=== PATIENT | male | born 1990 | race Caucasian/White ===

== ENCOUNTER 2016-08-31 10:26 | Emergency (ER) | payer OTHER ==
[2016-08-31 10:57] VITALS: TEMP 98.1
--- NOTE | 2016-08-31 11:15 | XR ---
Right hand HISTORY: Trauma and pain 3 views of the right hand No comparisons Bone mineralization, joint spaces and alignment are maintained. There is soft tissue swelling. Probab le geode distal pole of the scaphoid. IMPRESSION: No fracture or dislocation is evident. Follow-up as indicated.
--- NOTE | 2016-08-31 11:22 | ED ---
Upper Extremity HPI - General Chief Complaint: Extremity Injury, Upper Stated Complaint: RT WRIST INJURY Time Seen by Provider: 08/31/16 11:00 Source: patient, RN notes reviewed Mode of arrival: ambulatory Limitations: no limitations - History of Present Illness Initial Comments: 22-year-old male presents to the emergency Department chief complaint of right hand injury. Patient states that last night on Wednesday he punched something. Patient states since he's had pain over the top of his hand. Patient states that he hasn't had any other injuries from the incident. Patient states he is up-to-date on vaccinations. Patient states just continued to have pain on movement but he should be seen. Patient states that he has no other complaints at this time. Patient states pain is moderate with no radiation. Patient states constant throbbing with movement or touch. Place: home - Related Data Home Medications Medication Instructions Recorded Confirmed No Known Home Medications [No 08/31/16 08/31/16 Known Home Medications] Allergies Allergy/AdvReac Type Severity Reaction Status Date / Time No Known Allergies Allergy Verified 08/31/16 11:09 Review of Systems ROS Statement: Those systems with pertinent positive or pertinent negative responses have been documented in the HPI. ROS Other: All systems not noted in ROS Statement are negative. Past Medical History Past Medical History: No Reported History History of Any Multi-Drug Resistant Organisms: None Reported Past Surgical History: No Surgical Hx Reported Past Psychological History: No Psychological Hx Reported Smoking Status: Never smoker Past Alcohol Use History: Occasional Past Drug Use History: None Reported General Exam - General Exam Comments Initial Comments: General: The patient is awake and alert, in no distress, and does not appear acutely ill. Neck: The neck is supple, there is no tenderness. Cardiovascular: There is a regular rate and rhythm. No murmur, rub or gallop is appreciated. Respiratory: Lungs are clear to auscultation, respirations are non-labored, breath sounds are equal. No wheezes, stridor, rales, or rhonchi. Musculoskeletal: Sensation intact. 2+ pulses. Right upper extremity. Full range of motion of right wrist and right hand. Patient does appear to have multiple abrasions to the right hand side with associated tenderness to palpation of the fourth and fifth metacarpals. Full range of motion of all digits. No anatomical snuffbox tenderness. Neurological: CN II-XII intact, There are no obvious motor or sensory deficits. Coordination appears grossly intact. Speech is normal. Skin: Skin is warm and dry and no rashes or lesions are noted. Psychiatric: Normal mood and affect. Limitations: no limitations Course Vital Signs 08/31/16 10:54 Temperature 98.1 F Pulse Rate 57 L Respiratory 18 Rate Blood Pressure 140/74 O2 Sat by Pulse 100 Oximetry Procedures - Orthopedic Splinting/Casting Injury #1 Side: right Upper Extremity Injury Location: wrist Upper Extremity Immobilizer: Bandar wrap Medical Decision Making - Medical Decision Making 25-year-old male presents emergency department chief complaint of right hand pain. This time patient underwent an x-ray that shows no acute fracture. At this time we discussed ice Motrin Tylenol rice patient stated that he understood. We discussed return for follow-up. Patient is in agreement with the plan and all questions have been answered. This time he will be discharged home. - Radiology Data Radiology results: report reviewed, image reviewed Disposition Clinical Impression: Sprain of right hand, Contusion of right hand, Abrasion of right hand Disposition: HOME SELF-CARE Condition: Stable Instructions: Hand Sprain (ED), Abrasion (ED) Additional Instructions: Please use medication as discussed. Please follow up with family doctor if symptoms have not improved over the next two days. Please return to the emergency room if your symptoms increase or worsen or for any other concerns. Rest the area. Ice the area 20 min on 20 min off 4x a day. Compress the area with either the BANDAR bandage or wearing the splint. Elevate the area above the heart whenever possible. Referrals: Zaida Horner MD [STAFF PHYSICIAN] - 1-2 days Time of Disposition: 11:22
[2016-08-31 11:38] VITALS: BP 142/76; PULSE 67; RESP 16
== END 2016-08-31 11:38 | disposition home or self-care (01) ==
LOC: EC 10:26
DX: S63.91XA Sprain of unspecified part of right wrist and hand, initial encounter (principal); S60.221A Contusion of right hand, initial encounter; W22.8XXA Striking against or struck by other objects, initial encounter
CPT/HCPCS: 99283

== ENCOUNTER 2016-11-26 09:14 | Emergency (ER) | payer OTHER ==
[2016-11-26 09:34] VITALS: TEMP 98.4
--- NOTE | 2016-11-26 09:56 | ED ---
General Adult HPI - General Chief complaint: Extremity Injury, Upper Stated complaint: shoulder pain Time Seen by Provider: 11/26/16 09:42 Source: patient, RN notes reviewed Mode of arrival: ambulatory Limitations: no limitations - History of Present Illness Initial comments: Patient is a 26-year-old male who presents emergency room today with a chief complaint of a injury to the left shoulder that occurred 1 day ago. Does admit that he was playing volleyball went to dive for the ball landing on a talked left shoulder. He admits pain with certain movements when he tried to go above his head. States feels in the trapezius area. He denies any neck pain. Denies any head injury or loss conscious. Denies any other complaints or symptoms. Patient denies any recent fever, chills, shortness of breath, chest pain, back pain, abdominal pain, nausea or vomiting, numbness or tingling, dysuria or hematuria, constipation or diarrhea, headaches or visual changes, or any other complaints. - Related Data Previous Rx's Medication Instructions Recorded Ibuprofen [Motrin] 600 mg PO Q6HR PRN #40 day 11/26/16 Allergies Allergy/AdvReac Type Severity Reaction Status Date / Time No Known Allergies Allergy Verified 11/26/16 09:59 Review of Systems ROS Statement: Those systems with pertinent positive or pertinent negative responses have been documented in the HPI. ROS Other: All systems not noted in ROS Statement are negative. Past Medical History Past Medical History: No Reported History History of Any Multi-Drug Resistant Organisms: None Reported Past Surgical History: No Surgical Hx Reported Past Psychological History: No Psychological Hx Reported Smoking Status: Never smoker Past Alcohol Use History: Occasional Past Drug Use History: None Reported General Exam - General Exam Comments Initial Comments: General: The patient is awake and alert, in no distress, and does not appear acutely ill. Neck: The neck is supple, there is no tenderness or JVD. Cardiovascular: There is a regular rate and rhythm. No murmur, rub or gallop is appreciated. Respiratory: Lungs are clear to auscultation, respirations are non-labored, breath sounds are equal. No wheezes, stridor, rales, or rhonchi. Musculoskeletal: Patient has normal appearance of the left shoulder. Shows good range of motion all directions. Full range motion of his neck. No tenderness over cervical, thoracic spine. No step-offs 12 is appreciated. No deformities of the left shoulder. Has no specific bony tenderness mild discomfort over the before meals joint. No other bony tenderness. Pulses equal bilaterally 2+. Sensation intact. Strength 5/5. Neurological: A&O x 3. CN II-XII intact, There are no obvious motor or sensory deficits. Coordination appears grossly intact. Speech is normal. Skin: Skin is warm and dry and no rashes or lesions are noted. Psychiatric: Normal mood and affect. Limitations: no limitations Course Vital Signs 11/26/16 09:32 Temperature 98.4 F Pulse Rate 74 Respiratory 18 Rate Blood Pressure 124/70 O2 Sat by Pulse 100 Oximetry Medical Decision Making - Medical Decision Making X-ray reviewed and unremarkable. No acute fracture dislocation. Results were discussed with the patient. Patient will be discharged home advised used anti- inflammatories. Advised follow-up with orthopedics if symptoms aren't improved over the next week. Disposition Clinical Impression: Left shoulder strain Disposition: HOME SELF-CARE Condition: Good Instructions: Muscle Strain (ED) Additional Instructions: Please continue to ice elevate the affected area. Please use ibuprofen for pain. Please follow-up with orthopedics over the next 7-10 days if symptoms persist as discussed. Please return to emergency room for any other concerns. Prescriptions: Ibuprofen [Motrin] 600 mg PO Q6HR PRN #40 day PRN Reason: Pain Referrals: None,Stated [Primary Care Provider] - 1-2 days Marcus Araya MD [Medical Doctor] - 1-2 days Time of Disposition: 11:02
--- NOTE | 2016-11-26 10:27 | XR ---
EXAMINATION TYPE: XR shoulder complete LT DATE OF EXAM: 11/26/2016 10:21 AM COMPARISON: NONE HISTORY: Pain TECHNIQUE: Three views are submitted. FINDINGS: The osseous structures are intact. There is no acute fracture or dislocation. The AC joint is maint ained. IMPRESSION: 1. No acute process.
[2016-11-26 11:14] VITALS: BP 105/64; PULSE 58; RESP 16
== END 2016-11-26 11:14 | disposition home or self-care (01) ==
LOC: EC 09:14
DX: S46.912A Strain of unspecified muscle, fascia and tendon at shoulder and upper arm level, left arm, initial encounter (principal); X58.XXXA Exposure to other specified factors, initial encounter; Y93.68 Activity, volleyball (beach) (court)
CPT/HCPCS: 99283